=== PATIENT | female | born 1950 | race Caucasian/White ===

== ENCOUNTER 2021-01-21 17:22 | Emergency (ER) | payer MEDICARE, OTHER ==
[~2021-01-21] VITALS: Ht 167.6 cm; Wt 74.0 kg
[2021-01-21] MEDS ORDERED: ACETAMINOPHEN 325 MG TABLET PO ONE (18:15)
[2021-01-21 19:27] VITALS: BP 136/79
== END 2021-01-21 20:15 | disposition home or self-care (01) ==
LOC: EMS 17:28
DX: S62.327A Displaced fracture of shaft of fifth metacarpal bone, left hand, initial encounter for closed fracture (principal); J45.909 Unspecified asthma, uncomplicated; F17.210 Nicotine dependence, cigarettes, uncomplicated; F12.90 Cannabis use, unspecified, uncomplicated; W19.XXXA Unspecified fall, initial encounter; Y93.89 Activity, other specified; Y92.89 Other specified places as the place of occurrence of the external cause; Y99.8 Other external cause status
CPT/HCPCS: 99283